=== PATIENT | female | born 1940 | race Caucasian/White ===

== ENCOUNTER 2021-05-15 12:44 | Emergency (ER) | payer MEDICARE ==
--- NOTE | 2021-05-15 13:10 | ED Physician Documentation ---
PD HPI UPPER EXT INJURY - Stated complaint Stated Complaint: L SHOULDER PX,BRUISE - Chief complaint Chief Complaint: Ext Problem - History obtained from History obtained from: Patient - History of Present Illness Location: Left, Shoulder Timing - duration: Days (1) Timing - details: Abrupt onset Pain level max: 2 Pain level now: 1 Worsened by: Moving, Palpating Associated symptoms: Swelling, Discolored (bruising). No: Weakness, Numbness, Tingling Contributing factors: No: Anticoagulated, Prior ortho surgery, Prosthetic joint, Work related Similar symptoms before: Has not had sx before Recently seen: Not recently seen - Additonal information Additional information: Patient is a 80-year-old female who does not remember doing anything to her left arm and shoulder. She states she felt a pop yesterday and has swelling and bruising today. Worse with movement, better with rest. She is not on any blood thinners. Review of Systems Constitutional: denies: Fever, Chills Respiratory: denies: Cough GI: denies: Vomiting, Diarrhea Skin: denies: Rash Musculoskeletal: denies: Neck pain, Back pain Neurologic: denies: Focal weakness, Numbness, Headache, Head injury PD PAST MEDICAL HISTORY - Past Medical History Past Medical History: No - Allergies Allergies/Adverse Reactions: Allergies Allergy/AdvReac Type Severity Reaction Status Date / Time No Known Drug Allergies Allergy Verified 05/15/21 12:50 - Living Situation Living Arrangement: reports: At home - Social History Does the pt smoke?: No Does the pt drink ETOH?: No Does the pt have substance abuse?: No - Family History Family history: reports: Non contributory PD ED PE NORMAL - Vitals Vital signs reviewed: Yes - General General: Alert and oriented X 3, No acute distress, Well developed/nourished - HEENT HEENT: Atraumatic, PERRL, Moist mucous membranes - Neck Neck: Supple, no meningeal sign - Cardiac Cardiac: RRR - Respiratory Respiratory: No respiratory distress, Clear bilaterally - Abdomen Abdomen: Soft, Non tender, Non distended - Derm Derm: Warm and dry - Extremities Extremities: Other (Left shoulder - There is bruising from around the left shoulder down to the antecubital fossa. There is mild swelling about the shoulder as well. She has pain with resisted pronation of the hand. Also has pain when attempting to curl the arm. No gross deformity. Neurovascular intact) - Neuro Neuro: Alert and oriented X 3 - Psych Psych: Normal mood, Normal affect Results - Vitals Vitals: Vital Signs - 24 hr 05/15/21 05/15/21 12:51 14:38 Temperature 36.7 C 36.6 C Heart Rate 88 80 Respiratory 19 16 Rate Blood Pressure 173/100 H 168/99 H O2 Saturation 98 98 Oxygen O2 Source Room air - Labs Labs: Laboratory Tests 05/15/21 05/15/21 05/15/21 13:48 13:48 13:48 WBC 6.5 RBC 3.91 L Hgb 12.9 Hct 38.3 MCV 98.0 MCH 33.0 H MCHC 33.7 RDW 13.1 Plt Count 281 MPV 8.5 Neut # (Auto) 4.7 Lymph # (Auto) 1.2 L [place] # (Auto) 0.5 Eos # (Auto) 0.0 Baso # (Auto) 0.0 Absolute Nucleated RBC 0.00 Nucleated RBC % 0.0 PT 11.0 INR 1.0 APTT 30.3 Sodium 134 L Potassium 4.4 Chloride 98 L Carbon Dioxide 25 Anion Gap 11.0 BUN 26 H Creatinine 1.1 H Estimated GFR (MDRD) 48 L Glucose 89 Calcium 9.3 Total Bilirubin 0.6 AST 20 ALT 14 Alkaline Phosphatase 50 Total Protein 6.9 Albumin 4.2 Globulin 2.7 Albumin/Globulin Ratio 1.6 - Rads (name of study) L shoulder xray Radiology: Final report received, EMP read contemporaneously, See rad report (no acute findings) PD MEDICAL DECISION MAKING - ED course Complexity details: reviewed results, re-evaluated patient, considered differential, d/w patient ED course: No acute findings on x-ray or laboratory testing. Possible biceps tendon injury? Possible soft tissue contusion. Possible rotator cuff injury. We placed in a sling for comfort and will have her follow-up with orthopedics. She is not on any blood thinners at home. She will follow up with orthopedics for further care. Patient counseled regarding signs and symptoms for which I believe and urgent re-evaluation would be necessary. Patient with good understanding of and agreement to plan and is comfortable going home at this time This document was made in part using voice recognition software. While efforts are made to proofread this document, sound alike and grammatical errors may occu r. Departure - Departure Disposition: 01 Home, Self Care Clinical Impression: Ecchymosis Shoulder injury Qualifiers: Encounter type: initial encounter Laterality: left Qualified Code(s): S49.92XA - Unspecified injury of left shoulder and upper arm, initial encounter Condition: Good Instructions: ED Contusion Soft Tissue Follow-Up: SARAH JOSEPH MD [Primary Care Provider] - Within 1 week [facility] [Provider Group] Comments: Please follow-up with orthopedics in 1 week for repeat evaluation. Use the sling as needed for comfort. Return if you worsen. Your x-rays and blood work did not show any acute abnormalities today. It is possible that you have a biceps tendon injury or a rotator cuff injury that is causing the bruising and swelling.
--- NOTE | 2021-05-15 13:29 | XRAY Report ---
PROCEDURE: Shoulder 3 View LT INDICATIONS: swelling, bruising, no injury TECHNIQUE: 3 views of the shoulder were acquired. COMPARISON: None. FINDINGS: Bones: No fractures or dislocations. Moderate acromioclavicular joint and glenohumeral joint osteoa rthritic changes are seen. No suspicious bony lesions. Visualized ribs appear intact. Soft tissues: No suspicious soft tissue calcifications. IMPRESSION: No shoulder fracture or dislocation. Moderate left shoulder joint osteoarthritis. Reviewed by: Marcus Hunter MD on 05/15/2021 1:28 PM PDT Approved by: Marcus Hunter MD on 05/15/2021 1:28 PM PDT Station ID: [id number]
[2021-05-15 13:57] LABS: BASOPHILS % (AUTO) 0.3 %; EOSINOPHILS % (AUTO) 0.3 %; HCT - HEMATOCRIT 38.3 % (37.0-47.0); HGB - HEMOGLOBIN 12.9 g/dL (12.0-16.0); LYMPHOCYTES # (AUTO) 1.2 10^3/uL (1.5-3.5); LYMPHOCYTES % (AUTO) 18.2 %; MEAN CORPUSCULAR HGB CONC 33.7 g/dL (32.0-36.0); MEAN PLATELET VOLUME 8.5 fL (7.9-10.8); MONOCYTES # (AUTO) 0.5 10^3/uL (0.0-1.0); MONOCYTES % (AUTO) 7.9 %; NEUTROPHILS # (AUTO) 4.7 10^3/uL (1.5-6.6); PLT - PLATELET COUNT 281 10^3/uL (130-450); RED BLOOD COUNT 3.91 10^6/uL (4.20-5.40); RED CELL DISTRIBUTION WIDTH 13.1 % (12.0-15.0); WHITE BLOOD COUNT 6.5 x10^3/uL (4.8-10.8)
[2021-05-15 14:15] LABS: ALBUMIN 4.2 g/dL (3.2-5.5); ALBUMIN/GLOBULIN RATIO 1.6 (1.0-2.2); BILIRUBIN,TOTAL 0.6 mg/dL (0.2-1.0); CALCIUM 9.3 mg/dL (8.5-10.3); CREATININE 1.1 mg/dL (0.4-1.0); POTASSIUM 4.4 mmol/L (3.5-5.0); TOTAL PROTEIN 6.9 g/dL (6.7-8.2)
[2021-05-15 14:18] LABS: PARTIAL THROMBOPLASTIN TIME 30.3 secs (24.9-33.3)
[2021-05-15 14:39] VITALS: BP 168/99
== END 2021-05-15 14:38 | disposition home or self-care (01) ==
LOC: ED 12:44
DX: R58 Hemorrhage, not elsewhere classified (principal); S49.92XA Unspecified injury of left shoulder and upper arm, initial encounter
CPT/HCPCS: 36415; 80053; 85025; 85610; 85730; 99282; 99283